=== PATIENT | male | born 1965 | race American Indian/Alaskan Native ===

== ENCOUNTER 2016-11-28 05:05 | Emergency (ER) | payer BC ==
[2016-11-28 05:14] VITALS: BMI 24.9
[2016-11-28 05:22] VITALS: BP 142/79; PULSE 84; RESP 18; TEMP 98.2; O2SAT 100
--- NOTE | 2016-11-28 05:27 | ED PDOC ---
Arrival/HPI - General Historian: Patient - History of Present Illness Time/Duration: Other (yesterday evening) Symptom Onset: Gradual Symptom Course: Unchanged Activities at Onset: Light Context: Home - General Chief Complaint: Male Genitourinary Time Seen by Provider: 11/28/16 05:06 - History of Present Illness Narrative History of Present Illness (Text): 11/28/16 05:25 Josh Rodgers is a 51 year old male, whose past medical history includes urinary retention, who presents to the Emergency department complaining of abdominal pain. Patient states he was seen at the [facility] satellite ER 2 days prior for urinary retention and had a Coy catheter placed. Patient states yesterday evening the Coy catheter stopped draining and he began experiencing LLQ pain with some suprapubic pressure. Patient denies any history of kidney stones, fever, chills, chest pain, shortness of breath, nausea, vomiting, diarrhea, neck pain, headache, dizziness, or any other complaints. (Chris Medley) Past Medical History - Provider Review Nursing Documentation Reviewed: Yes - Infectious Disease Hx of Infectious Diseases: None - Cardiac Hx Cardiac Disorders: No - Pulmonary Hx Respiratory Disorders: No - Neurological Hx Neurological Disorder: No - HEENT Hx HEENT Disorder: No - Renal Hx Renal Disorder: Yes Other/Comment: urinary retention - Endocrine/Metabolic Hx Endocrine Disorders: No - Hematological/Oncological Hx Blood Disorders: No - Integumentary Hx Dermatological Disorder: No - Musculoskeletal/Rheumatological Hx Musculoskeletal Disorders: No - Gastrointestinal Hx Gastrointestinal Disorders: Yes - Genitourinary/Gynecological Hx Genitourinary Disorders: No - Psychiatric Hx Psychophysiologic Disorder: No Hx Substance Use: No - Anesthesia Hx Anesthesia: Yes Hx Anesthesia Reactions: No Hx Malignant Hyperthermia: No Family/Social History - Physician Review Nursing Documentation Reviewed: Yes Family/Social History: Unknown Family HX Smoking Status: Never Smoked Hx Alcohol Use: Yes Frequency of alcohol use: Socially Hx Substance Use: No Allergies/Home Meds Allergies/Adverse Reactions: Allergies No Known Allergies Allergy (Verified 11/28/16 05:13) Home Medications: Home Meds Medication Instructions Recorded Confirmed Aspirin [Aspirin Chewable] 81 mg PO DAILY 11/28/16 11/28/16 Mv,Noe,Min/Iron/Folic Acid/Lut 1 tab PO DAILY 11/28/16 11/28/16 [Complete Multi Tablet] Saw [place] [Saw [place]] 1 tab PO DAILY 11/28/16 11/28/16 Tamsulosin [Flomax] 0.4 mg PO DAILY 11/28/16 11/28/16 Review of Systems - Physician Review All systems were reviewed & negative as marked: Yes - Review of Systems Constitutional: Normal. absent: Fevers Eyes: Normal ENT: Normal Respiratory: Normal. absent: SOB, Cough Cardiovascular: Normal. absent: Chest Pain Gastrointestinal: Abdominal Pain (+LLQ pain). absent: Diarrhea, Vomiting Genitourinary Male: Urinary Output Changes (+urinary retention) Musculoskeletal: Normal. absent: Back Pain, Neck Pain Skin: Normal. absent: Rash Neurological: Normal. absent: Headache, Dizziness Endocrine: Normal Hemo/Lymphatic: Normal Psychiatric: Normal Physical Exam Vital Signs Reviewed: Yes Temperature: Afebrile Blood Pressure: Normal Pulse: Regular Respiratory Rate: Normal Appearance: Positive for: Well-Appearing, Non-Toxic, Comfortable Pain Distress: None Mental Status: Positive for: Alert and Oriented X 3 - Systems Exam Head: Present: Atraumatic, Normocephalic Pupils: Present: PERRL Extroacular Muscles: Present: EOMI Conjunctiva: Present: Normal Mouth: Present: Moist Mucous Membranes Neck: Present: Normal Range of Motion Respiratory/Chest: Present: Clear to Auscultation, Good Air Exchange. No: Respiratory Distress, Accessory Muscle Use Cardiovascular: Present: Regular Rate and Rhythm, Normal S1, S2. No: Murmurs Abdomen: Present: Tenderness (LLQ tenderness), Normal Bowel Sounds. No: Distention, Peritoneal Signs Back: Present: Normal Inspection Upper Extremity: Present: Normal Inspection. No: Cyanosis, Edema Lower Extremity: Present: Normal Inspection. No: Edema Neurological: Present: GCS=15, CN II-XII Intact, Speech Normal Skin: Present: Warm, Dry, Normal Color. No: Rashes Psychiatric: Present: Alert, Oriented x 3, Normal Insight, Normal Concentration Medical Decision Making Re-evaluation Time: 06:45 Reassessment Condition: Re-examined, Improved - Lab Interpretations I have reviewed the lab results: Yes - RAD Interpretation [employer]: [place] ED Course and Treatment: 11/28/16 05:25 Impression: 51 year old male complaining of LLQ pain and urinary retention. Differential Diagnosis included but are not limited to: urinary retention vs. renal colic vs. UTI vs. diverticular disease vs. abdominal pain Plan: -- Labs -- Urinalysis -- Toradol -- Reassess and disposition Progress Notes: 11/28/16 05:42 Bladder scan performed by RN, [address] Abdomen and Pelvis ordered. 11/28/16 06:29 Reviewed radiology, CT Abdomen and Pelvis shows: 1. Bladder is decompressed around a Coy catheter with a tiny amount of air present. There does appear to be some bladder wall thickening although this may relate to underdistention. Please correlate clinically. 2. Prostate is grossly enlarged measuring 6.7 CM transverse. 3. Additional incidental and/or chronic findings as described. (hCris Mdeley) - Lab Interpretations Narrative Lab Interpretation (Text): 12/02/16 14:27 +urine culture just resulted today, sensitive to the cipro with +klebsiella and +pseudomonas, needs change of antibiotics, left voicemail to call back. 12/03/16 14:33 +urine culture just resulted today, sensitive to the cipro with +klebsiella and +pseudomonas, needs change of antibiotics, left voicemail to call back. (Humble Kuhn) Microbiology Results: Microbiology Results 11/28/16 05:54 Urine,Clean Catch Urine Culture - Final Klebsiella Pneumoniae Ssp Pneu Pseudomonas Aeruginosa Lab Results: 11/28/16 05:54 11/28/16 05:54 Lab Results 11/28/16 05:54: Sodium 139, Potassium 3.6, Chloride 100, Carbon Dioxide 28, Anion Gap 15, BUN 9, Creatinine 0.8, Est GFR ( Amer) > 60, Est GFR (Non- Af Amer) > 60, Random Glucose 95, Calcium 9.5, Total Bilirubin 1.0, AST 27, ALT 23, Alkaline Phosphatase 50, Total Protein 7.5, Albumin 4.5, Globulin 2.9, Albumin/Globulin Ratio 1.6 11/28/16 05:54: Urine Color Yellow, Urine Appearance Slight-cloudy, Urine pH 6.0 , Ur Specific [place] 1.020, Urine Protein 100 H, Urine Glucose (UA) Negative, Urine Ketones Negative, Urine Blood Large H, Urine Nitrate Negative, Urine Bilirubin Negative, Urine Urobilinogen 0.2, Ur Leukocyte Esterase Large H, Urine RBC 5 - 10, Urine WBC Tntc, Ur Epithelial Cells 0 - 2, Urine Bacteria Mod 11/28/16 05:54: WBC 13.1 H, RBC 4.69, Hgb 14.4, Hct 41.6 L, MCV 88.7, MCH 30.7, MCHC 34.6, RDW 13.0, Plt Count 192, MPV 10.6, Gran % 81.9 H, Lymph % (Auto) 9.4 L, [place] % (Auto) 7.6 H, Eos % (Auto) 1.0 L, Baso % (Auto) 0.1, Gran # 10.74 H, Lymph # 1.2, [place] # 1.0 H, Eos # 0.1, Baso # 0.01 - RAD Interpretation Narrative RAD Interpretations (Text): CT Abdomen and Pelvis shows: Lower thorax: There is minimal bibasilar atelectasis. ABDOMEN: Liver: There are no focal liver lesions present. Gallbladder and bile ducts: The gallbladder is contracted but otherwise normal. No calcified stones. No ductal dilation. Pancreas: The pancreas is normal. No ductal dilation. Spleen: The spleen is normal. Adrenals: The adrenal glands are normal. Kidneys and ureters: The kidneys are normal. No obstructing stones. No hydronephrosis. Stomach and bowel: Stomach is decompressed. Colonic constipation is present. There is no evidence of intestinal obstruction. No mucosal thickening. Appendix: A normal appendix is identified. PELVIS: Bladder: Bladder is decompressed around a Coy catheter with a tiny amount of air present. There does appear to be some bladder wall thickening although this may relate to underdistention. Please correlate clinically. No stones. Reproductive: Prostate is grossly enlarged measuring 6.7 CM transverse. ABDOMEN and PELVIS: Intraperitoneal space: There is no evidence of free intraperitoneal fluid. There is no free intraperitoneal air. Bones/joints: There are mild degenerative changes present. No acute fracture. No dislocation. Soft tissues: Unremarkable. Vasculature: The aorta is normal. No abdominal aortic aneurysm. Lymph nodes: There is no evidence of lymphadenopathy. IMPRESSION: 1. Bladder is decompressed around a Coy catheter with a tiny amount of air present. There does appear to be some bladder wall thickening although this may relate to underdistention. Please correlate clinically. 2. Prostate is grossly enlarged measuring 6.7 CM transverse. 3. Additional incidental and/or chronic findings as described. (Chris Medley) Radiology Orders: 11/28/16 05:42 ABD & PELVIS W/O PO OR IV CONT [CT] Stat - Medication Orders Current Medication Orders: Discontinued Medications Sodium Chloride (Sodium Chloride 0.9%) 1,000 mls @ 80 mls/hr IV .[id number] [id number] Last Admin: 11/28/16 05:56 Dose: 80 mls/hr Ketorolac Tromethamine (Toradol) 30 mg IVP ONCE ONE Stop: 11/28/16 05:29 Last Admin: 11/28/16 05:56 Dose: 30 mg Ketorolac Tromethamine (Toradol) 30 mg IVP ONCE ONE Stop: 11/28/16 06:36 Last Admin: 11/28/16 06:52 Dose: 30 mg Comments: Verified with MD. Phenazopyridine HCl (Pyridium) 200 mg PO STAT STA Stop: 11/28/16 06:35 Last Admin: 11/28/16 06:52 Dose: 200 mg Trimethoprim/Sulfamethoxazole (Bactrim Ds Tab) 1 tab PO ONCE ONE PRN Reason: Protocol Stop: 11/28/16 06:35 Last Admin: 11/28/16 06:52 Dose: 1 tab - Scribe Statement The provider has reviewed the documentation as recorded by the Scribe - Scribe Statement Sherron Bernard Provider Scribe Attestation: All medical record entries made by the Scribe were at my direction and personally dictated by me. I have reviewed the chart and agree that the record accurately reflects my personal performance of the history, physical exam, medical decision making, and the department course for this patient. I have also personally directed, reviewed, and agree with the discharge instructions and disposition. (Chris Medley) Disposition/Present on Arrival - Present on Arrival Any Indicators Present on Arrival: No History of DVT/PE: No History of Uncontrolled Diabetes: No Urinary Catheter: No History of Decub. Ulcer: No History Surgical Site Infection Following: None - Disposition Have Diagnosis and Disposition been Completed?: Yes Disposition Time: 06:45 - Disposition Diagnosis: Urinary tract infection Disposition: HOME/ ROUTINE Condition: GOOD Discharge Instructions (ExitCare): Urinary Tract Infection in Men (ED), Catheter-associated Urinary Tract Infection (ED) Additional Instructions: follow up with your urologist drink plenty of fluids Prescriptions: Sulfamethoxazole/Trimethoprim [Bactrim DS 800 mg-160 mg] 1 tab PO BID #14 tab Phenazopyridine HCl [Pyridium] 200 mg PO TID #6 tablet Tramadol HCl [Ultram] 50 mg PO QID #8 tab Referrals: Gely Gonzáles MD [Primary Care Provider] - Follow up with primary Forms: [employer] ([place]) - Notes Notes (Text): 12/04/16 14:27 Urine cx shows klebsiella and pseudomonas, needs Rx for cipro. Pt called yesterday, bill left to call ER back. Called again today with no answer, will send a letter. (Abhinav NIEVES,Floridalma Palm)
[2016-11-28] MEDS ORDERED: Sodium Chloride 0.9% 1,000 ML IV SCH (05:45)
[2016-11-28 06:09] LABS: BASO # 0.01 K/mm3 (0.0-2.0); BASO % 0.1 % (0.0-3.0); EOS # 0.1 (0.0-0.7); GRAN # 10.74 (1.4-6.5); GRAN % 81.9 % (50.0-68.0); HEMATOCRIT 41.6 % (42.0-52.0); LYMPH # 1.2 (1.2-3.4); LYMPH % 9.4 % (22.0-35.0); MEAN CELL VOLUME 88.7 fl (80.0-105.0); MEAN CORPUSCULAR HEMOGLOBIN 30.7 pg (25.0-35.0); MEAN CORPUSCULAR HGB CONC 34.6 g/dl (31.0-37.0); MEAN PLATELET VOLUME 10.6 fl (7.0-11.0); MONO % 7.6 % (1.0-6.0); WHITE BLOOD COUNT 13.1 10^3/ul (4.5-11.0)
[2016-11-28 06:14] LABS: URINE BILIRUBIN NEGATIVE (NEGATIVE); URINE BLOOD LARGE (NEGATIVE); URINE GLUCOSE (UA) NEGATIVE (NEGATIVE); URINE KETONE NEGATIVE (NEGATIVE); URINE LEUKOCYTE ESTERASE LARGE Leu/uL (NEGATIVE); URINE PROTEIN 100 mg/dL (<30 mg/dL); URINE UROBILINOGEN 0.2 E.U./dL (<1 E.U./dL)
[2016-11-28 06:16] LABS: ALB/GLOB RATIO 1.6 (1.1-1.8); ALKALINE PHOSPHATASE 50 U/L (38-126); ALT/SGPT 23 U/L (7-56); AST/SGOT 27 U/L (17-59); BLOOD UREA NITROGEN 9 mg/dL (7-21); CALCIUM 9.5 mg/dL (8.4-10.5); CARBON DIOXIDE 28 mmol/L (21-33); CHLORIDE 100 mmol/L (98-107); GFR AFRICAN-AMERICAN > 60; GLUCOSE,RANDOM 95 mg/dL (70-110); POTASSIUM 3.6 mmol/L (3.6-5.0); SODIUM 139 mmol/L (132-148); TOTAL PROTEIN 7.5 g/dL (5.8-8.3); URINE APPEARANCE SLIGHT-CLOUDY (CLEAR); URINE COLOR YELLOW (YELLOW)
--- NOTE | 2016-11-28 06:27 | CT ---
EXAM: CT Abdomen and Pelvis Without Intravenous Contrast CLINICAL HISTORY: 51 years old, male; Pain; Abdominal pain; Localized; Left lower quadrant (llq); Prior surgery; Surgery type: Herniorrhaphy; Additional info: Llq pain TECHNIQUE: Axial computed tomography images of the abdomen and pelvis without intravenous contrast. All CT scans at this facility use one or more dose reduction techniques, viz.: automated exposure control; ma/kV adjustment per patient size (including targeted exams where dose is matched to indication; i.e. head); or iterative reconstruction technique. Coronal and sagittal reformatted images were created and reviewed. COMPARISON: No relevant prior studies available. FINDINGS: Lower thorax: There is minimal bibasilar atelectasis. ABDOMEN: Liver: There are no focal liver lesions present. Gallbladder and bile ducts: The gallbladder is contracted but otherwise normal. No calcified stones. No ductal dilation. Pancreas: The pancreas is normal. No ductal dilation. Spleen: The spleen is normal. Adrenals: The adrenal glands are normal. Kidneys and ureters: The kidneys are normal. No obstructing stones. No hydronephrosis. Stomach and bowel: Stomach is decompressed. Colonic constipation is present. There is no evidence of intestinal obstruction. No mucosal thickening. Appendix: A normal appendix is identified. PELVIS: Bladder: Bladder is decompressed around a Coy catheter with a tiny amount of air present. There does appear to be some bladder wall thickening although this may relate to underdistention. Please correlate clinically. No stones. Reproductive: Prostate is grossly enlarged measuring 6.7 CM transverse. ABDOMEN and PELVIS: Intraperitoneal space: There is no evidence of free intraperitoneal fluid. There is no free intraperitoneal air. Bones/joints: There are mild degenerative changes present. No acute fracture. No dislocation. Soft tissues: Unremarkable. Vasculature: The aorta is normal. No abdominal aortic aneurysm. Lymph nodes: There is no evidence of lymphadenopathy. IMPRESSION: 1. Bladder is decompressed around a Coy catheter with a tiny amount of air present. There does appear to be some bladder wall thickening although this may relate to underdistention. Please correlate clinically. 2. Prostate is grossly enlarged measuring 6.7 CM transverse. 3. Additional incidental and/or chronic findings as described.
[2016-11-28] MEDS ORDERED: Tmp-Smz 800 mg-160 mg DS Tab PO ONE (06:34)
[2016-11-28 06:37] LABS: URINE BACTERIA MOD (NEG); URINE EPITHELIAL CELLS 0 - 2 /hpf (0-5); URINE WBC TNTC /hpf (0-6)
== END 2016-11-28 07:04 | disposition home or self-care (01) ==
LOC: ED 05:05
DX: N39.0 Urinary tract infection, site not specified (principal)
CPT/HCPCS: 74176; 80053; 81001; 85025; 87086; 96374; 96376; 99284; J1885; J7040